=== PATIENT | male | born 1950 | race Caucasian/White ===

== ENCOUNTER 2021-03-31 08:59 | Outpatient (REF) | payer MEDICARE, OTHER, SELFPAY | END 2021-03-31 09:00 | disposition home or self-care (01) | LOC: HO.HMGCLDS 08:59 | PROVIDERS: PCP Internal Medicine; Visit Provider Internal Medicine | DX: Z20.822 Contact with and (suspected) exposure to COVID-19 (principal) | CPT/HCPCS: C9803; U0003; U0005 ==

== ENCOUNTER 2021-09-01 08:51 | Outpatient (REF) | payer MEDICARE, OTHER, SELFPAY ==
[2021-09-01 11:22] LABS: Hematocrit 38.9 % (42.0-52.0); Hemoglobin 12.5 g/dl (14.0-18.0); Mean Corpuscular HGB Conc 32.1 g/dl (31.0-36.0); Mean Corpuscular Hemoglobin 30.5 pg (27.0-33.0); Mean Corpuscular Volume 94.9 fL (80.0-98.0); Mean Platelet Volume 11.7 fL (9.4-12.4); Platelet Count 209 X10*3/uL (160-400); Red Cell Distribution Width 13.2 % (11.0-16.0); White Blood Count 7.4 X10*3/uL (4.8-10.8)
[2021-09-01 11:45] LABS: Appearance Urine CLEAR; Color Urine YELLOW; Glucose Urine UA NEG (NEG); Leukocyte Esterase Urine NEG (NEG); Nitrite Urine NEG (NEG); Specific Gravity - Urine >= 1.030 (1.005-1.025); Urine Blood NEG (NEG); Urine Ketones NEG (NEG); Urine Protein NEG (NEG-TRACE)
[2021-09-01 11:49] LABS: Alanine Aminotransferase 25 U/L (0-40); Albumin Level 3.9 g/dL (3.5-5.0); Alkaline Phosphatase 70 U/L (39-117); Anion Gap 8 (12-20); Aspartate Amino Transferase 21 U/L (5-37); Bilirubin Total 0.8 mg/dL (0.0-1.0); Blood Urea Nitrogen 24 mg/dL (9-16); Calcium 8.8 mg/dL (8.4-10.2); Carbon Dioxide 29 mmol/L (22-29); Chloride 108 mmol/L (96-108); Cholesterol 108 mg/dL; Estimated Glomerular Filt Rate > 60; Glucose Fasting 95 mg/dL (60-99); HDL Cholesterol 42 mg/dL; LDL Cholesterol Calculated 60 mg/dl; Potassium 4.1 mmol/L (3.3-5.1); Sodium 141 mmol/L (135-145); Total Protein 6.3 g/dL (6.5-8.0); Triglycerides 32 mg/dL
[2021-09-01 11:52] LABS: Prostate Specific Antigen Scr 3.15 ng/mL (<0.05-4.0)
[2021-09-01 12:16] LABS: Squamous Epithelial Cell Urine TRACE /LPF; WBC Urine 0-2 /HPF (0-4)
[2021-09-01 12:17] LABS: Bacteria Urine TRACE /LPF; Mucus Urine TRACE /LPF; RBC Urine 0-2 /HPF (0)
== END 2021-09-01 08:52 | disposition home or self-care (01) ==
LOC: HO.HMGCLDS 08:51
PROVIDERS: PCP Internal Medicine; Visit Provider Internal Medicine
DX: Z00.00 Encounter for general adult medical examination without abnormal findings (principal); Z12.5 Encounter for screening for malignant neoplasm of prostate; I48.91 Unspecified atrial fibrillation; I10 Essential (primary) hypertension
CPT/HCPCS: 36415; 80053; 80061; 81001; 84153; 85027

== ENCOUNTER 2021-12-07 14:39 | Outpatient (REF) | payer MEDICARE, OTHER, SELFPAY ==
[2021-12-07 16:33] LABS: Basophils Absolute Auto 0.1 X10*3/uL (0.0-0.2); Basophils Percent Auto 0.5 % (0-2); Eosinophils Absolute Auto 0.3 X10*3/uL (0.0-0.4); Eosinophils Percent Auto 2.5 % (0-4); Imm Gran Abs Auto 0.05 X10*3/uL (0.00-0.03); Imm Gran Pct Auto 0.4 % (0.0-0.4); Immature Retic Fraction 7.1 % (2.3-13.4); Lymphocytes Percent Auto 8.9 % (20-40); MANUAL DIFF FLAG SCAN; Mean Corpuscular HGB Conc 32.4 g/dl (31.0-36.0); Mean Corpuscular Hemoglobin 29.9 pg (27.0-33.0); Mean Corpuscular Volume 92.3 fL (80.0-98.0); Mean Platelet Volume 10.8 fL (9.4-12.4); Monocytes Absolute Auto 1.6 X10*3/uL (0.1-1.2); Monocytes Percent Auto 14.3 % (2-11); Neutrophils Absolute Auto 8.3 x10*3/uL (2.0-8.3); Neutrophils Percent Auto 73.4 % (45-73); Platelet Count 365 X10*3/uL (160-400); Red Blood Count 4.01 X10*6/uL (4.60-5.80); Red Cell Distribution Width 11.9 % (11.0-16.0); Retic HGB Equivalent 31.2 pg (30.0-35.0); Reticulocytes Absolute 0.038 X10*6/uL (0.026-0.095); SCAN SMEAR FLAG 1; White Blood Count 11.4 X10*3/uL (4.8-10.8)
[2021-12-07 16:42] LABS: Appearance Urine Cloudy; Color Urine Yellow; Glucose Urine UA Negative (Negative); Leukocyte Esterase Urine Trace (Negative); Nitrite Urine Negative (Negative); PH 5.5 (5.0-9.0); Specific Gravity - Urine 1.025 (1.005-1.025); Urine Blood Negative (Negative); Urine Ketones Negative (Negative); Urine Protein 30 (1+) mg/dL (Neg-Trace)
[2021-12-07 16:45] LABS: Alanine Aminotransferase 23 U/L (0-40); Albumin Level 3.6 g/dL (3.5-5.0); Alkaline Phosphatase 59 U/L (39-117); Anion Gap 15 (12-20); Aspartate Amino Transferase 24 U/L (5-37); Bilirubin Total 0.6 mg/dL (0.0-1.0); Blood Urea Nitrogen 17 mg/dL (9-16); Calcium 8.7 mg/dL (8.4-10.2); Carbon Dioxide 27 mmol/L (22-29); Chloride 103 mmol/L (96-108); Estimated Glomerular Filt Rate > 60; Glucose Random 105 mg/dL (60-115); Iron 20 mcg/dL (45-160); Percent Iron Saturation 8 % (15-50); Sodium 141 mmol/L (135-145); Total Iron Binding Capacity 236 mcg/dL (228-428); Total Protein 6.4 g/dL (6.5-8.0); Unsaturated Iron Binding 216 ug/dL
[2021-12-07 16:47] LABS: Bacteria Urine None Seen (None Seen); Squamous Epithelial Cell Urine 0-2 /HPF (0-2); WBC Urine 0-5 /HPF (0-5)
[2021-12-07 16:56] LABS: SLIDE REVIEW VERIFIED
[2021-12-07 17:06] LABS: TSH reflex Free T4 0.93 uIU/mL (0.32-4.0)
[2021-12-07 17:17] LABS: Folate 6.4 ng/mL (> or = 4.0); Vitamin B12 297 pg/mL (200-900)
[2021-12-10 10:03] LABS: PES - Abn Protein Band 1 0.2 g/dL (NONE DETECTED); Prot Elec - Albumin 3.1 g/dL (3.8-4.8); Prot Elec - Alpha1 0.6 g/dL (0.2-0.3); Prot Elec - Beta 1 0.4 g/dL (0.4-0.6); Prot Elec - Beta 2 0.3 g/dL (0.2-0.5); Prot Elec - Total Protein 6.5 g/dL (6.1-8.1)
== END 2021-12-07 14:40 | disposition home or self-care (01) ==
LOC: HO.HMGCLDS 14:39
PROVIDERS: PCP Internal Medicine; Visit Provider Internal Medicine
DX: I48.91 Unspecified atrial fibrillation (principal); R09.89 Other specified symptoms and signs involving the circulatory and respiratory systems; R63.4 Abnormal weight loss; I10 Essential (primary) hypertension
CPT/HCPCS: 36415; 80053; 81001; 82607; 82746; 83540; 84165; 84443; 85025; 85045

== ENCOUNTER 2021-12-29 12:25 | Outpatient (REF) | payer MEDICARE, OTHER, SELFPAY ==
--- NOTE | ~2021-12-29 | XR_ITS ---
EXAMINATION: XR FEMUR, LEFT CLINICAL INFORMATION: Abnormal findings on diagnostic imaging of limbs. COMPARISON: None TECHNIQUE: AP and lateral views of the left femur were obtained. FINDINGS: Irregular, expansile appearance of the proximal femur extending from the femoral neck into the proximal diaphysis. There is expansion of the cortex with inner cortical scalloping. No periosteal reaction or cortical erosion. Additionally within the distal femoral diametaphysis, there appears to be a well-defined lytic focus measuring up to 10.2 cm in craniocaudal dimension. No associated periosteal reaction or cortical erosion. No acute fracture or dislocation. No significant joint space narrowing or marginal osteophytes. Phleboliths within the pelvis. XR/XR femur LT 2V IMPRESSION: Expansile mixed lytic and sclerotic focus within the proximal femur as well as a smaller, lytic-appearing focus within the distal femur. Findings are nonspecific, however, there is no periosteal reaction or full-thickness cortical erosion. Differential diagnosis includes metastasis and myeloma given the patient's age. Giant cell tumor could also be included in the differential diagnosis. MR imaging without and with contrast could help further evaluate if clinically indicated.
[2021-12-29 14:14] LABS: Baso%MD 0.6 %; Eos%MD 2.6 %; Hematocrit 32.1 % (42.0-52.0); Hemoglobin 9.9 g/dl (14.0-18.0); IG%MD 0.5 %; Lymph%MD 11.2 %; Mean Corpuscular HGB Conc 30.8 g/dl (31.0-36.0); Mean Corpuscular Hemoglobin 28.2 pg (27.0-33.0); Mean Corpuscular Volume 91.5 fL (80.0-98.0); Mean Platelet Volume 10.8 fL (9.4-12.4); Mono%MD 12.4 %; Neut%MD 72.7 %; Platelet Count 400 X10*3/uL (160-400); Red Blood Count 3.51 X10*6/uL (4.60-5.80); Red Cell Distribution Width 13.2 % (11.0-16.0); White Blood Count 10.2 X10*3/uL (4.8-10.8)
[2021-12-29 14:54] LABS: Alanine Aminotransferase 87 U/L (0-40); Albumin Level 3.1 g/dL (3.5-5.0); Alkaline Phosphatase 76 U/L (39-117); Anion Gap 16 (12-20); Aspartate Amino Transferase 76 U/L (5-37); Bilirubin Total 0.6 mg/dL (0.0-1.0); Blood Urea Nitrogen 15 mg/dL (9-16); C Reactive Protein 12.25 mg/dL (< or = 0.50); Calcium 8.3 mg/dL (8.4-10.2); Carbon Dioxide 29 mmol/L (22-29); Chloride 102 mmol/L (96-108); Estimated Glomerular Filt Rate > 60; Glucose Random 94 mg/dL (60-115); Potassium 3.8 mmol/L (3.3-5.1); Sodium 143 mmol/L (135-145); Total Protein 6.1 g/dL (6.5-8.0)
[2021-12-29 15:01] LABS: Lymphocytes Absolute Manual 0.8 X10*3/uL (1.2-4.9); Lymphocytes Percent Manual 8 % (20-40); Monocytes Percent Manual 10 % (2-11); Neutrophils Percent Manual 82 % (45-73); Platelet Estimate NORMAL (NORMAL); Platelet Morphology Comment NORMAL; RBC Morphology NORMAL
[2021-12-29 15:06] LABS: Erythrocyte Sedimentation Rate 102 MM/HR (0-15)
[2021-12-29 15:20] LABS: Folate 6.6 ng/mL (> or = 4.0); Vitamin B12 422 pg/mL (200-900)
[2022-01-03 15:06] LABS: IgA 193 mg/dL (70-320); IgG 1175 mg/dL (600-1540); IgM 66 mg/dL (50-300)
== END 2021-12-29 12:26 | disposition home or self-care (01) ==
LOC: HO.HMGCX 12:25
PROVIDERS: PCP Internal Medicine; Visit Provider Internal Medicine
DX: R93.6 Abnormal findings on diagnostic imaging of limbs (principal); D80.1 Nonfamilial hypogammaglobulinemia; D64.9 Anemia, unspecified
CPT/HCPCS: 36415; 73552; 80053; 82607; 82746; 82784; 85007; 85027; 85652; 86140; 86334

== ENCOUNTER 2021-12-30 09:11 | Outpatient (REF) | payer MEDICARE, OTHER, SELFPAY ==
--- NOTE | ~2021-12-30 | US_ITS ---
EXAMINATION: US EXTRACRANIAL CAROTID DUPLEX, BILATERAL CLINICAL INFORMATION: Carotid bruit. Hypertension. Coronary artery disease. COMPARISON: 02/20/2018 TECHNIQUE: Real-time ultrasound and Doppler techniques (integrating B-mode 2-D vascular images, Doppler spectral analysis and color-flow Doppler imaging) were utilized to interrogate the extracranial carotid arteries, the vertebral arteries and proximal subclavian arteries bilaterally. The degree of stenosis is determined by criteria similar to NASCET. FINDINGS: Right Side: 1. There is moderate amount of soft atherosclerotic plaque seen in the bifurcation/proximal ICA region. 2. The common carotid artery PSV proximally is 80 cm/s and distally 72 cm/s. 3. The proximal internal carotid artery velocities are 187 cm/s systolic and 58 cm/s diastolic. 4. The proximal external carotid artery PSV is 83 cm/s. 5. The vertebral artery shows antegrade flow. 6. The subclavian artery waveforms are normal. Left Side: 1. There is moderate amount of mixed atherosclerotic plaque seen in the bifurcation/proximal ICA region. 2. The common carotid artery PSV proximally is 86 cm/s and distally 79 cm/s. 3. The proximal internal carotid artery velocities are 132 cm/s systolic and 46 cm/s diastolic. 4. The proximal external carotid artery PSV is 78 cm/s. 5. The vertebral artery shows antegrade flow. 6. The subclavian artery waveforms are normal. US/US carotid duplex BI IMPRESSION: 1. RIGHT: Moderate, hemodynamically significant stenosis of the proximal right internal carotid artery corresponding to a 50-79% stenosis by velocity criteria. 2. LEFT: Moderate, hemodynamically significant stenosis of the proximal left internal carotid artery corresponding to a 50-79% stenosis by velocity criteria. 3. There is no change in the category severity of disease when compared to the previous study dated 02/20/2018.
[2021-12-30 11:23] LABS: Appearance Urine Clear; Color Urine Yellow; Glucose Urine UA Negative (Negative); Leukocyte Esterase Urine Negative (Negative); Nitrite Urine Negative (Negative); Specific Gravity - Urine 1.015 (1.005-1.025); UMIC TRIGGER UACC YES; Urine Blood Trace (Negative); Urine Ketones Negative (Negative); Urine Protein 30 (1+) mg/dL (Neg-Trace)
[2021-12-30 11:28] LABS: Bacteria Urine None Seen (None Seen); Hyaline Casts Urine 0-2 /LPF (0-2); RBC Urine 0-2 /HPF (0-2); Squamous Epithelial Cell Urine 0-2 /HPF (0-2); WBC Urine 0-5 /HPF (0-5)
== END 2021-12-30 09:12 | disposition home or self-care (01) ==
LOC: HO.HMGCX 09:11
PROVIDERS: PCP Internal Medicine; Visit Provider Internal Medicine
DX: I10 Essential (primary) hypertension (principal); I48.91 Unspecified atrial fibrillation; R09.89 Other specified symptoms and signs involving the circulatory and respiratory systems
CPT/HCPCS: 81001; 93880

== ENCOUNTER 2022-02-14 08:23 | Outpatient (REF) | payer MEDICARE, OTHER, SELFPAY ==
[2022-02-14 11:22] LABS: MANUAL DIFF FLAG NO
[2022-02-14 11:28] LABS: Basophils Absolute Auto 0.1 X10*3/uL (0.0-0.2); Basophils Percent Auto 0.8 % (0-2); Eosinophils Absolute Auto 0.4 X10*3/uL (0.0-0.4); Eosinophils Percent Auto 5.3 % (0-4); Hematocrit 37.3 % (42.0-52.0); Hemoglobin 11.5 g/dl (14.0-18.0); Imm Gran Abs Auto 0.02 X10*3/uL (0.00-0.03); Imm Gran Pct Auto 0.3 % (0.0-0.4); Lymphocytes Absolute Auto 1.7 X10*3/uL (1.2-4.9); Lymphocytes Percent Auto 22.5 % (20-40); Mean Corpuscular HGB Conc 30.8 g/dl (31.0-36.0); Mean Corpuscular Hemoglobin 28.8 pg (27.0-33.0); Mean Corpuscular Volume 93.3 fL (80.0-98.0); Mean Platelet Volume 11.4 fL (9.4-12.4); Monocytes Absolute Auto 0.8 X10*3/uL (0.1-1.2); Monocytes Percent Auto 10.7 % (2-11); Neutrophils Absolute Auto 4.6 x10*3/uL (2.0-8.3); Neutrophils Percent Auto 60.4 % (45-73); Platelet Count 249 X10*3/uL (160-400); Red Cell Distribution Width 16.1 % (11.0-16.0); White Blood Count 7.6 X10*3/uL (4.8-10.8)
[2022-02-14 12:07] LABS: Alanine Aminotransferase 43 U/L (0-40); Albumin Level 3.8 g/dL (3.5-5.0); Alkaline Phosphatase 81 U/L (39-117); Anion Gap 14 (12-20); Aspartate Amino Transferase 30 U/L (5-37); Bilirubin Total 0.6 mg/dL (0.0-1.0); Blood Urea Nitrogen 22 mg/dL (9-16); Calcium 8.6 mg/dL (8.4-10.2); Carbon Dioxide 25 mmol/L (22-29); Chloride 106 mmol/L (96-108); Estimated Glomerular Filt Rate > 60; Glucose Fasting 88 mg/dL (60-99); Iron 86 mcg/dL (45-160); Percent Iron Saturation 32 % (15-50); Potassium 4.3 mmol/L (3.3-5.1); Sodium 141 mmol/L (135-145); Total Iron Binding Capacity 271 mcg/dL (228-428); Total Protein 6.4 g/dL (6.5-8.0); Unsaturated Iron Binding 185 ug/dL
== END 2022-02-14 08:24 | disposition home or self-care (01) ==
LOC: HO.HMGCLDS 08:23
PROVIDERS: PCP Internal Medicine; Visit Provider Internal Medicine
DX: E61.1 Iron deficiency (principal)
CPT/HCPCS: 36415; 80053; 83540; 85025

== ENCOUNTER 2022-05-05 12:20 | Outpatient (REF) | payer MEDICARE, OTHER, SELFPAY ==
[2022-05-05 13:11] LABS: Ammonia 21 umol/L (13-55)
[2022-05-05 13:21] LABS: Alanine Aminotransferase 25 U/L (0-40); Albumin Level 4.2 g/dL (3.5-5.0); Alkaline Phosphatase 80 U/L (39-117); Anion Gap 12 (12-20); Aspartate Amino Transferase 26 U/L (5-37); Bilirubin Direct 0.3 mg/dL (0.0-0.5); Blood Urea Nitrogen 18 mg/dL (9-16); Calcium 9.3 mg/dL (8.4-10.2); Carbon Dioxide 29 mmol/L (22-29); Chloride 105 mmol/L (96-108); Estimated Glomerular Filt Rate > 60; Glucose Random 108 mg/dL (60-115); Phosphorus 3.3 mg/dL (2.7-4.5); Potassium 4.6 mmol/L (3.3-5.1); Sodium 141 mmol/L (135-145); Total Protein 7.1 g/dL (6.5-8.0)
== END 2022-05-05 12:21 | disposition home or self-care (01) ==
LOC: HO.LAB 12:20
PROVIDERS: PCP Internal Medicine; Visit Provider Psychiatry & Neurology Neurology
DX: G25.3 Myoclonus (principal)
CPT/HCPCS: 36415; 80048; 80076; 82140; 83519; 83520; 83735; 84100; 84181; 86255; 86256; 86341; 86596

== ENCOUNTER 2022-06-17 09:00 | Outpatient (REF) | payer MEDICARE, OTHER, SELFPAY ==
[2022-06-17 11:25] LABS: MANUAL DIFF FLAG NO
[2022-06-17 11:56] LABS: Basophils Absolute Auto 0.1 X10*3/uL (0.0-0.2); Basophils Percent Auto 0.7 % (0-2); Eosinophils Absolute Auto 0.3 X10*3/uL (0.0-0.4); Eosinophils Percent Auto 3.7 % (0-4); Hematocrit 40.3 % (42.0-52.0); Hemoglobin 12.9 g/dl (14.0-18.0); Imm Gran Abs Auto 0.03 X10*3/uL (0.00-0.03); Imm Gran Pct Auto 0.4 % (0.0-0.4); Lymphocytes Absolute Auto 1.5 X10*3/uL (1.2-4.9); Lymphocytes Percent Auto 21.7 % (20-40); Mean Corpuscular Hemoglobin 30.1 pg (27.0-33.0); Mean Corpuscular Volume 93.9 fL (80.0-98.0); Mean Platelet Volume 11.7 fL (9.4-12.4); Monocytes Absolute Auto 0.9 X10*3/uL (0.1-1.2); Neutrophils Absolute Auto 4.1 x10*3/uL (2.0-8.3); Neutrophils Percent Auto 60.5 % (45-73); Platelet Count 203 X10*3/uL (160-400); Red Blood Count 4.29 X10*6/uL (4.60-5.80); Red Cell Distribution Width 13.9 % (11.0-16.0); White Blood Count 6.8 X10*3/uL (4.8-10.8)
[2022-06-17 12:36] LABS: Alanine Aminotransferase 23 U/L (0-40); Alkaline Phosphatase 74 U/L (39-117); Anion Gap 8 (12-20); Aspartate Amino Transferase 25 U/L (5-37); Bilirubin Total 1.3 mg/dL (0.0-1.0); Blood Urea Nitrogen 27 mg/dL (9-16); Calcium 8.6 mg/dL (8.4-10.2); Carbon Dioxide 29 mmol/L (22-29); Chloride 109 mmol/L (96-108); Cholesterol 112 mg/dL; Estimated Glomerular Filt Rate > 60; Glucose Fasting 89 mg/dL (60-99); HDL Cholesterol 45 mg/dL; Iron 144 mcg/dL (45-160); LDL Cholesterol Calculated 60 mg/dl; Percent Iron Saturation 53 % (15-50); Potassium 4.2 mmol/L (3.3-5.1); Sodium 142 mmol/L (135-145); Total Iron Binding Capacity 274 mcg/dL (228-428); Total Protein 6.3 g/dL (6.5-8.0); Triglycerides 35 mg/dL; Unsaturated Iron Binding 130 ug/dL
== END 2022-06-17 09:01 | disposition home or self-care (01) ==
LOC: HO.HMGCLDS 09:00
PROVIDERS: PCP Internal Medicine; Visit Provider Internal Medicine
DX: E61.1 Iron deficiency (principal); D64.9 Anemia, unspecified; I10 Essential (primary) hypertension; I25.10 Atherosclerotic heart disease of native coronary artery without angina pectoris
CPT/HCPCS: 36415; 80053; 80061; 83540; 85025

== ENCOUNTER 2022-12-22 14:50 | Outpatient (REF) | payer MEDICARE, OTHER, SELFPAY ==
[2022-12-22 16:39] LABS: Appearance Urine Clear; Color Urine Yellow; Glucose Urine UA Negative (Negative); Leukocyte Esterase Urine Small (1+) (Negative); Nitrite Urine Negative (Negative); PH 5.5 (5.0-9.0); Specific Gravity - Urine >= 1.030 (1.005-1.025); UMIC TRIGGER UACC YES; Urine Blood Negative (Negative); Urine Ketones Negative (Negative); Urine Protein 30 (1+) mg/dL (Neg-Trace)
[2022-12-22 16:58] LABS: Bacteria Urine 1+ (None Seen); Hyaline Casts Urine 0-2 /LPF (0-2); RBC Urine 0-2 /HPF (0-2); Squamous Epithelial Cell Urine 0-2 /HPF (0-2); UACC Culture Trigger YES; WBC Urine 21-50 /HPF (0-5)
== END 2022-12-22 14:51 | disposition home or self-care (01) ==
LOC: HO.HMGCLDS 14:50
PROVIDERS: PCP Internal Medicine; Visit Provider Internal Medicine
DX: R30.0 Dysuria (principal)
CPT/HCPCS: 81001; 87086; 87088; 87186

== ENCOUNTER 2023-12-25 09:56 | Outpatient (AMB) | payer MEDICARE, OTHER, SELFPAY ==
--- NOTE | 2023-12-25 09:57 | A.OFFVIS_ITS ---
Intake Vital Signs 12/25/23 10:10 Height 6 ft 3 in Weight 203 lb BMI 25.4 BP 114/76 Blood Pressure Location Lt brachial Position Sitting Pulse 61 Pulse Source Pulse Oximeter Pulse Oximetry (%) 99 Oxygen Delivery Method Room Air Intake Visit Reasons: AWV Allergies No Known Allergies Allergy (Verified 12/25/23 10:11) HPI AWV HPI Details Initiated the conversation about Advanced Directives. Advanced Directives help? patients prepare for current and future decisions about their medical treatment? and place of care. Discussed with patient that it is a process where a patients? current condition and prognosis are reviewed, their wishes for information? regarding their illness are elicited, and likely medical dilemmas are presented? and options discussed. The form can be amended as needed, reviewed yearly and? make changes as needed IPPE/AWV ? year old presents? for her ? Annual? Wellness Visit, initial visit.? Medical / Social History Reviewed? Past Medical History ?Yes? . ? [place]? of Care / Care Team list updated ?Yes . ? Surgical/Hospitalization? History ?Yes . ? Current Medications? (including OTC and supplements) ?Yes . ? Family History ?Yes? . ? Tobacco? Control form ?Yes . ? AUDIT-C (Alcohol use) form? ?Yes . ? Illicit drug use in Social? History ?Yes . ? Current diagnosis of? depression? ?No ? Appropriate PHQ2/PHQ9? completed ?Yes . ? Data entered by ?Medical? Financial Management and reviewed by provider ? Fall Risk ? Fall? History? Have you had any falls with? injury in the past year? ?No . ? Have you had two or more? falls in the past year? ?No . ? Fall Risk Assessment: ?No? falls in the past year . ? HRA filled out by? the patient, reviewed by Provider and scanned. ? IPPE/AWV ? Balance? [place]? ?Yes . ? Tandem? walk ?Yes . ? Walk and? Turn ?Yes . ? Rise from? sit to stand ?Yes . ?Vision? Corrective? lens ?Yes ? Vision? screen ? Up-to-date, has an appointment [] for vision? screening and glaucoma screening ?Hearing? Whisper? test ?pass .? Initiated the conversation about Advanced Directives. Advanced Directives help? patients prepare for current and future decisions about their medical treatment? and place of care. Discussed with patient that it is a process where a patients? current condition and prognosis are reviewed, their wishes for information? regarding their illness are elicited, and likely medical dilemmas are presented? and options discussed. The form can be amended as needed, reviewed yearly and? make changes as needed Written? Plan?Completed. See Patient? Documents. [facility] Medical History (Updated 12/25/23 @ 10:35 by Astrid Bauman MD) A-fib Annual physical exam BPH (benign prostatic hyperplasia) Vertigo Low testosterone History of elevated PSA Vitamin D deficiency Mixed hyperlipidemia Coronary artery disease Neuropathy Hypertension Surgical History (Updated 12/25/23 @ 10:46 by Astrid Bauman MD) H/O colonoscopy Family History Father Hypertension Mother Hypertension Social History Housing: House Alcohol intake: current Alcohol intake frequency: holidays/special occasions only Patient Tobacco Use Status: Never used Tobacco e-Cigarette/Vaping Use: Never Used Current occupational status: retired Cognitive needs: No Hearing needs: No Vision needs: Yes Questionnaire Medicare Wellness Checkup Can you handle your own money without help?: Yes Mini Mental State Exam (MMSE) Orientation What is the (year) (season) (date) (day) (month)?: year, season, date, day and month Where are we (state) (county) (town or city) (hospital) (floor)?: state, county, town or city, hospital/clinic and floor Registration Name of 3 unrelated objects clearly and slowly, then ask patient to repeat all 3 of them. (1st repeat determines score. Make sure they can repeat all three): object 1, object 2 and object 3 Attention & Calculation (CHOOSE ONE) Spell WORLD backwards (DLROW): 5 letters Recall Ask patient to repeat the 3 items from question #3.: object 1, object 2 and object 3 Language Show patient a wristwatch & ask what it is. Repeat for pencil.: watch and pencil Ask the patient to repeat the phrase 'No ifs, ands, or buts' after you.: correct Ask the patient to 'take a piece of paper with their right hand' 'fold paper in half' 'place paper on floor': take paper in right hand, fold paper in half and place paper on floor Print the sentence 'CLOSE YOUR EYES' on a piece. If patient actually closes eyes then score.: followed written direction Give patient a blank piece of paper & ask to write a sentence. Score if it contains a noun & verb.: sentence contains subject and verb Score Score: 29 Review of Systems Const All systems reviewed & are unremarkable except as noted in HPI and below Reports no additional complaints Eyes Reports no additional complaints ENT Reports no additional complaints Card Reports no additional complaints Resp Reports no additional complaints GI Reports no additional complaints Reports no additional complaints Physical Exam Vital Signs: Last Vital Signs Pulse 61 12/25/23 10:10 BP 114/76 12/25/23 10:10 Pulse Ox 99 12/25/23 10:10 Oxygen Delivery Method Room Air 12/25/23 10:10 BMI result Body Mass Index 25.4 Const General: no acute distress HEENT Head: Yes normal to inspection Ears: hearing grossly normal bilaterally Eyes General: appearance normal, both eyes and all related structures Neck Neck: Yes no lymphadenopathy and Yes supple Resp Effort & Inspection: normal respiratory effort Auscultation: clear to auscultation bilaterally Cardio Rhythm: regular rhythm Heart sounds: S1 normal heart sound present and S2 normal heart sound present GI Inspection: Yes normal to inspection Palpation (GI): Soft to palpation Percussion: Yes normal to percussion Auscultation: normal bowel sounds Extrem General: Yes no clubbing, cyanosis or edema Assessment & Plan Assessment & Plan (1) A-fib: Comment: f/u with Cardiology [place] pulsed field ablation 10/2023 Code(s): I48.91 - Unspecified atrial fibrillation (2) BPH (benign prostatic hyperplasia): Comment: f/u , f/u urology at [facility] , will have procedure to decrease blood flow Code(s): N40.0 - Benign prostatic hyperplasia without lower urinary tract symptoms (3) Annual physical exam: Code(s): Z00.00 - Encounter for general adult medical examination without abnormal findings (4) Hypertension: Code(s): I10 - Essential (primary) hypertension (5) Monoclonal gammopathy of unknown significance: Comment: will see hematology, referred by Dr. Messer Code(s): D47.2 - Monoclonal gammopathy Coding Diagnoses A-fib I48.91 BPH (benign prostatic hyperplasia) N40.0 Annual physical exam Z00.00 Hypertension I10 Monoclonal gammopathy of unknown significance D47.2
[2023-12-25 10:10] VITALS: BP 114/76; PULSE 61; O2SAT 99; BMI 25.4
--- NOTE | 2023-12-25 11:11 | A.OFFPC_ITS ---
Vital Signs 12/25/23 10:10 Height 6 ft 3 in Weight 203 lb BMI 25.4 BP 114/76 Blood Pressure Location Lt brachial Position Sitting Pulse 61 Pulse Source Pulse Oximeter Pulse Oximetry (%) 99 Oxygen Delivery Method Room Air Intake Visit Reasons: Follow up Allergies No Known Allergies Allergy (Verified 12/25/23 10:11) Tobacco use date assessed: 12/25/23 Fall risk assessment: No Falls in past year Dental Screening Dental Screen Date: 12/25/23 Did you have a dental visit in the last 12 months?: Yes Did you have a dental problem in the last 6 months where you did not have access to dental care?: No Was dental information given to patient?: Patient has dentist [facility] Medical History (Updated 12/25/23 @ 10:35 by Astrid Bauman MD) A-fib Annual physical exam BPH (benign prostatic hyperplasia) Vertigo Low testosterone History of elevated PSA Vitamin D deficiency Mixed hyperlipidemia Coronary artery disease Neuropathy Hypertension Surgical History (Updated 12/25/23 @ 10:46 by Astrid Bauman MD) H/O colonoscopy Family History Father Hypertension Mother Hypertension Social History Housing: House Alcohol intake: current Alcohol intake frequency: holidays/special occasions only Patient Tobacco Use Status: Never used Tobacco e-Cigarette/Vaping Use: Never Used service: No Current occupational status: retired Cognitive needs: No Hearing needs: No Vision needs: Yes Questionnaire PHQ-9 Over the last 2 weeks, how often have you been bothered by any of the following problems? 1. Little interest or pleasure in doing things: not at all 2. Feeling down, depressed, or hopeless: not at all 3. Trouble falling or staying asleep, or sleeping too much: not at all 4. Feeling tired or having little energy: not at all 5. Poor appetite or overeating: not at all 6. Feeling bad about yourself - or that you are a failure or have let yourself or your family down: several days 7. Trouble concentrating on things, such as reading the newspaper or watching television: not at all 8. Moving or speaking so slowly that other people could have noticed. Or the opposite - being so fidgety or restless that you have been moving around a lot more than usual: not at all 9. Thoughts that you would be better off or of hurting yourself in some way: not at all Total score: 1 Depression Screening Interpretation: Negative Depression Screening Done: Yes 61456 - PHQ-9 Billing: Yes Source: Developed by Drs. Ze Roy, Aby Augustin, Con Vaca and colleagues, with an educational albert from [employer]. Thrive Questionnaire Date Thrive assessed: 12/25/23 I am a: Patient What is your living situation today?: I have a steady place to live Within the past 12 months, did the food you bought not last and you didn't have the money to get more?: Never true Within the past 12 months, did you worry whether your food would run out before you got money to buy more?: Never true Do you have trouble paying for medicines?: No Do you have trouble getting transportation to medical appointments?: No Do you have trouble paying your heating and electricity bill?: No Do you have trouble taking care of your child, family member or friend?: No Do you have trouble with day-to-day activities such as bathing, preparing meals, shopping, managing finances, etc.?: No Are you currently unemployed and looking for a job?: No Are you interested in more education?: No Please select the resources that you would like help with: None THRIVE Score: 0 AUDIT C Alcohol Use Questionnaire (AUDIT-C) 1. How often do you have a drink containing alcohol?: Never 3. How often do you have six or more drinks on one occasion?: Never Total Score: 0 JONH-7 AMB Questionnaire JONH-7 Date JONH - 7 assessed: 12/25/23 Feeling nervous, anxious, or on edge: 0 = Not at all Not being able to stop or control worryin = Not at all Worrying too much about different things: 0 = Not at all Trouble relaxin = Not at all Being so restless that it is hard to sit still: 0 = Not at all Becoming easily annoyed or irritable: 0 = Not at all Feeling afraid as if something awful might happen: 0 = Not at all Total JONH-7 score (0-4 normal; 5-9 mild; 10-14 moderate; 15-21 severe): 0 Source: Developed by Drs. Ze Roy, Aby Augustin, Con Vaca and colleagues, with an educational albert from [employer]. JONH-7 Assessment Billing JONH-7 Assessment Tool: JONH-7 Assessment 82440 Physical exam (Primary Care) Vital Signs: Last Vital Signs Pulse 61 12/25/23 10:10 BP 114/76 12/25/23 10:10 Pulse Ox 99 12/25/23 10:10 Oxygen Delivery Method Room Air 12/25/23 10:10 BMI result Body Mass Index 25.4 Tobacco/Smoking Status: Tobacco use Status Tobacco use date assessed 12/25/23 12/25/23 11:12 Patient Tobacco Use Status Never used Tobacco 12/25/23 11:12 e-Cigarette/Vaping Use Never Used 12/25/23 11:12 PHQ-9: PHQ-9 Score PHQ-9: Total score 1 12/25/23 11:12 Depression Screening Interpretation: Negative Thrive Assessment: Date of Thrive Assessment Date Thrive assessed 12/25/23 12/25/23 11:12 Assessment and Plan Assessment & Plan (1) A-fib: Comment: f/u with [facility] pulsed field ablation 10/2023 Code(s): I48.91 - Unspecified atrial fibrillation (2) BPH (benign prostatic hyperplasia): Comment: f/u , f/u urology at [facility] , will have procedure to decrease blood flow Code(s): N40.0 - Benign prostatic hyperplasia without lower urinary tract symptoms (3) Annual physical exam: Code(s): Z00.00 - Encounter for general adult medical examination without abnormal findings (4) Hypertension: Code(s): I10 - Essential (primary) hypertension (5) Monoclonal gammopathy of unknown significance: Comment: will see hematology, referred by Dr. Messer Code(s): D47.2 - Monoclonal gammopathy Coding Diagnoses A-fib I48.91 BPH (benign prostatic hyperplasia) N40.0 Annual physical exam Z00.00 Hypertension I10 Monoclonal gammopathy of unknown significance D47.2 Additional Codes JONH-7 Assessment Billing - JONH-7 Assessment Tool: JONH-7 Assessment [id number] ([id number])
--- NOTE | 2023-12-25 15:08 | AM.OFFVISMDC ---
Intake Vital Signs 12/25/23 10:10 12/25/23 15:09 Height 6 ft 3 in Weight 203 lb BMI 25.4 25.4 BP 114/76 Blood Pressure Location Lt brachial Position Sitting Pulse 61 Pulse Source Pulse Oximeter Pulse Oximetry (%) 99 Oxygen Delivery Method Room Air Intake Visit Reasons: AWV Allergies No Known Allergies Allergy (Verified 12/25/23 10:11) HPI AWV HPI Details Initiated the conversation about Advanced Directives. Advanced Directives help? patients prepare for current and future decisions about their medical treatment? and place of care. Discussed with patient that it is a process where a patients? current condition and prognosis are reviewed, their wishes for information? regarding their illness are elicited, and likely medical dilemmas are presented? and options discussed. The form can be amended as needed, reviewed yearly and? make changes as needed IPPE/AWV ? year old presents? for her ? Annual? Wellness Visit, initial visit.? Medical / Social History Reviewed? Past Medical History ?Yes? . ? [place]? of Care / Care Team list updated ?Yes . ? Surgical/Hospitalization? History ?Yes . ? Current Medications? (including OTC and supplements) ?Yes . ? Family History ?Yes? . ? Tobacco? Control form ?Yes . ? AUDIT-C (Alcohol use) form? ?Yes . ? Illicit drug use in Social? History ?Yes . ? Current diagnosis of? depression? ?No ? Appropriate PHQ2/PHQ9? completed ?Yes . ? Data entered by ?Medical? [employer] and reviewed by provider ? Fall Risk ? Fall? History? Have you had any falls with? injury in the past year? ?No . ? Have you had two or more? falls in the past year? ?No . ? Fall Risk Assessment: ?No? falls in the past year . ? HRA filled out by? the patient, reviewed by Provider and scanned. ? IPPE/AWV ? Balance? [place]? ?Yes . ? Tandem? walk ?Yes . ? Walk and? Turn ?Yes . ? Rise from? sit to stand ?Yes . ?Vision? Corrective? lens ?Yes ? Vision? screen ? Up-to-date, has an appointment [] for vision? screening and glaucoma screening ?Hearing? Whisper? test ?pass .? Initiated the conversation about Advanced Directives. Advanced Directives help? patients prepare for current and future decisions about their medical treatment? and place of care. Discussed with patient that it is a process where a patients? current condition and prognosis are reviewed, their wishes for information? regarding their illness are elicited, and likely medical dilemmas are presented? and options discussed. The form can be amended as needed, reviewed yearly and? make changes as needed Written? Plan?Completed. See Patient? Documents. [facility] Medical History (Updated 12/25/23 @ 15:30 by Astrid Bauman MD) A-fib Annual physical exam BPH (benign prostatic hyperplasia) Vertigo Low testosterone History of elevated PSA Vitamin D deficiency Mixed hyperlipidemia Coronary artery disease Neuropathy Hypertension Surgical History (Updated 12/25/23 @ 10:46 by Astrid Bauman MD) H/O colonoscopy Family History Father Hypertension Mother Hypertension Social History Housing: House Alcohol intake: current Alcohol intake frequency: holidays/special occasions only Patient Tobacco Use Status: Never used Tobacco e-Cigarette/Vaping Use: Never Used Current occupational status: retired Cognitive needs: No Hearing needs: No Vision needs: Yes Questionnaire Medicare Wellness Checkup [age] What gender do you identify with?: male During the past 4 weeks, how much have you been bothered by emotional problems such as feeling anxious, depressed, irritable, sad or downhearted, and blue?: slightly During the past 4 weeks, has your physical & emotional health limited your social activities with family, friends, neighbors, or groups?: not at all During the past 4 weeks, how much bodily pain have you generally had?: very mild pain During the past 4 weeks, was someone available to help you if you needed & wanted help?: yes, as much as I wanted During the past 4 weeks, what was the hardest physical activity you could do for at least 2 minutes?: moderate Can you get to places out of walking distance without help? (For eg., can you travel alone on buses, taxis or drive your car?): Yes Can you go shopping for groceries or clothes without someone's help?: Yes Can you prepare your own meals?: Yes Can you do your housework without help?: Yes Because of any health problems, do you need the help of another person with your personal care needs such as eating, bathing, dressing or getting around the house?: No Can you handle your own money without help?: Yes During the past 4 weeks, how would you rate your health in general?: good During the past 4 weeks how have things been going for you?: pretty well Are you having difficulties driving your car?: no Do you always fasten your seat belt when you are in a car?: yes, usually During past 4 weeks, have you been bothered by the following: never: Falling or dizzy when standing up, Sexual problems?, Trouble eating well?, Teeth or denture problems?, Problems using the telephone? and Tiredness or fatigue? Have you fallen 2 or more times in the past year?: No Are you afraid of falling?: No Are you a smoker?: no During the past 4 weeks, how many drinks of wine, beer, or other alcoholic beverages did you have?: no alcohol at all Do you exercise for about 20 minutes 3 or more times a week?: yes, some of the time Have you been given information to help with the following?: no: Hazards in your house that might hurt you? and no: Keeping track of your medications? How often do you have trouble taking medicines the way you have been told to take them?: I always take medicine as prescribed How confident are you that you can control & manage most of your health problems?: very confident What is your race?: White Mini Mental State Exam (MMSE) Orientation What is the (year) (season) (date) (day) (month)?: year, season, date, day and month Where are we (state) (county) (town or city) (hospital) (floor)?: state, county, town or city, hospital/clinic and floor Registration Name of 3 unrelated objects clearly and slowly, then ask patient to repeat all 3 of them. (1st repeat determines score. Make sure they can repeat all three): object 1, object 2 and object 3 Attention & Calculation (CHOOSE ONE) Spell WORLD backwards (DLROW): 5 letters Recall Ask patient to repeat the 3 items from question #3.: object 1, object 2 and object 3 Language Show patient a wristwatch & ask what it is. Repeat for pencil.: watch and pencil Ask the patient to repeat the phrase 'No ifs, ands, or buts' after you.: correct Ask the patient to 'take a piece of paper with their right hand' 'fold paper in half' 'place paper on floor': take paper in right hand, fold paper in half and place paper on floor Print the sentence 'CLOSE YOUR EYES' on a piece. If patient actually closes eyes then score.: followed written direction Give patient a blank piece of paper & ask to write a sentence. Score if it contains a noun & verb.: sentence contains subject and verb Score Score: 29 Activity of Daily Living Bathing - sponge bath, tub bath or shower: receives no assistance (gets in/out by self, if usual bathing means Dressing - getting clothes from closets & drawers, including inner/outer garments & fasteners.: gets clothes & gets completely dressed without help Toileting - going to the 'toilet room' for urine/bowel elimination & cleaning self/arranging clothes: goes to toilet room, cleans self, arranges clothes without help Transfer: moves in & out of bed and chair without help (may use support object) Continence: controls urination/bowel movements completely by self Feeding: feeds self without help Total Score: 0 Information obtained from: patient Using telephone: independent Traveling: independent Shopping: independent Preparing meals: independent Housework: independent Taking medicine: independent Managing money: independent PHQ-9 Over the last 2 weeks, how often have you been bothered by any of the following problems? 1. Little interest or pleasure in doing things: not at all 2. Feeling down, depressed, or hopeless: not at all 3. Trouble falling or staying asleep, or sleeping too much: not at all 4. Feeling tired or having little energy: not at all 5. Poor appetite or overeating: not at all 6. Feeling bad about yourself - or that you are a failure or have let yourself or your family down: not at all 7. Trouble concentrating on things, such as reading the newspaper or watching television: not at all 8. Moving or speaking so slowly that other people could have noticed. Or the opposite - being so fidgety or restless that you have been moving around a lot more than usual: not at all 9. Thoughts that you would be better off or of hurting yourself in some way: not at all Total score: 0 Depression Screening Interpretation: Negative Depression Screening Done: Yes 96072 - PHQ-9 Billing: Yes Source: Developed by Drs. Ze Roy, Aby Augustin, Con Vaca and colleagues, with an educational albert from [email or web address]. Review of Systems Const All systems reviewed & are unremarkable except as noted in HPI and below Eyes Reports no additional complaints ENT Reports no additional complaints Card Reports no additional complaints Resp Reports no additional complaints GI Reports no additional complaints Reports no additional complaints Physical Exam Vital Signs: Last Vital Signs Pulse 61 12/25/23 10:10 BP 114/76 12/25/23 10:10 Pulse Ox 99 12/25/23 10:10 Oxygen Delivery Method Room Air 12/25/23 10:10 BMI result Body Mass Index 25.4 Const General: no acute distress HEENT Head: Yes normal to inspection Resp Effort & Inspection: normal respiratory effort Auscultation: clear to auscultation bilaterally Cardio Rhythm: regular rhythm Heart sounds: S1 normal heart sound present and S2 normal heart sound present GI Inspection: Yes normal to inspection Palpation (GI): Soft to palpation Percussion: Yes normal to percussion Auscultation: normal bowel sounds Extrem General: Yes no clubbing, cyanosis or edema Assessment & Plan Assessment & Plan (1) A-fib: Comment: f/u with Cardiology [place] pulsed field ablation 10/2023 Code(s): I48.91 - Unspecified atrial fibrillation Plan: Follow-up with the Cardiology (2) BPH (benign prostatic hyperplasia): Comment: f/u , f/u urology at [facility] , will have a new procedure Code(s): N40.0 - Benign prostatic hyperplasia without lower urinary tract symptoms Plan: Follow-up with urology (3) Annual physical exam: Code(s): Z00.00 - Encounter for general adult medical examination without abnormal findings Plan: Well-balanced diet regular physical activity discussed with the patient (4) Hypertension: Code(s): I10 - Essential (primary) hypertension Plan: Continue current medications (5) Monoclonal gammopathy of unknown significance: Comment: referred to [place] hematology by Dr. Messer Code(s): D47.2 - Monoclonal gammopathy Plan: Follow-up with hematology (6) Mixed hyperlipidemia: Code(s): E78.2 - Mixed hyperlipidemia Plan: Patient was advised to take high dose statin to prevent TN and CVA Quality Reporting (2019) Depression/Bipolar (159/160/161/177) PHQ-9: Total score: 0 Coding Level of Care Code Medicare Subsequent (G0439) Diagnoses A-fib I48.91 BPH (benign prostatic hyperplasia) N40.0 Annual physical exam Z00.00 Hypertension I10 Monoclonal gammopathy of unknown significance D47.2 Mixed hyperlipidemia E78.2 CPT Codes Advance Care Planning - Time spent: 1-15 minutes, not on file ([id number]) Advance Care Planning Advance Care Planning discussion: Exists, not on file Forms completed: Health Care Proxy Time spent: 1-15 minutes, not on file
[2023-12-25 15:09] VITALS: BMI 25.4
== END 2023-12-25 12:17 | disposition home or self-care (01) ==
PROVIDERS: PCP Internal Medicine; Visit Provider Internal Medicine
DX: Z00.00 Encounter for general adult medical examination without abnormal findings (principal); I48.91 Unspecified atrial fibrillation; N40.0 Benign prostatic hyperplasia without lower urinary tract symptoms; I10 Essential (primary) hypertension; D47.2 Monoclonal gammopathy; E78.2 Mixed hyperlipidemia

== ENCOUNTER → 2023-12-25 09:56 | Outpatient (BNVA) | payer MEDICARE, OTHER, SELFPAY | PROVIDERS: PCP Internal Medicine; Visit Provider Internal Medicine ==

== ENCOUNTER 2024-10-17 08:26 | Outpatient (AMB) | payer MEDICARE, OTHER, SELFPAY ==
[2024-10-17 08:33] VITALS: BP 118/80; PULSE 60; RESP 18; TEMP 36.5; O2SAT 99; BMI 24.7
--- NOTE | 2024-10-17 08:33 | A.OFFPC_ITS ---
Vital Signs 10/17/24 08:33 Height 6 ft 3 in Weight 198 lb BMI 24.7 BP 118/80 Blood Pressure Location Lt brachial Position Sitting Respiration 18 Pulse 60 Pulse Source Pulse Oximeter Temp 97.7 F Temp Source Oral Pulse Oximetry (%) 99 Oxygen Delivery Method Room Air Intake Visit Reasons: annual pe Intake Note: Pt is here today for PE. Allergies No Known Allergies Allergy (Verified 10/17/24 08:35) Medication List - Last Reconciled 10/17/24 by Astrid Bauman MD apixaban 5 mg PO BID aspirin 81 mg PO DAILY atorvastatin 80 mg PO DAILY diltiazem HCl CD (Cardizem CD) 180 mg PO DAILY flu vac 2020 [id number](PF) 60 mcg (15 mcg x 4)/0.5 mL mL IM lisinopril 10 mg PO DAILY metoprolol succinate ER 25 mg PO DAILY Tobacco use date assessed: 10/17/24 Fall risk assessment: No Falls in past year Last assessed Fall Risk: 10/17/24 Dental Screening Dental Screen Date: 10/17/24 Did you have a dental visit in the last 12 months?: Yes Did you have a dental problem in the last 6 months where you did not have access to dental care?: No Was dental information given to patient?: Patient has dentist HPI annual pe HPI Details Pt presents for PE PFS Medical History (Updated 10/17/24 @ 08:50 by Astrid Bauman MD) A-fib Annual physical exam BPH (benign prostatic hyperplasia) Vertigo Low testosterone History of elevated PSA Vitamin D deficiency Mixed hyperlipidemia Coronary artery disease Neuropathy Hypertension Surgical History History of prostate surgery Hx of prior ablation treatment H/O colonoscopy Family History Father Hypertension Mother Hypertension Social History Housing: House Alcohol intake: current Alcohol intake frequency: holidays/special occasions only Patient Tobacco Use Status: Never used Tobacco e-Cigarette/Vaping Use: Never Used service: No Current occupational status: retired Cognitive needs: No Hearing needs: No Vision needs: Yes Questionnaire PHQ-9 Over the last 2 weeks, how often have you been bothered by any of the following problems? 1. Little interest or pleasure in doing things: not at all 2. Feeling down, depressed, or hopeless: not at all 3. Trouble falling or staying asleep, or sleeping too much: not at all 4. Feeling tired or having little energy: not at all 5. Poor appetite or overeating: not at all 6. Feeling bad about yourself - or that you are a failure or have let yourself or your family down: not at all 7. Trouble concentrating on things, such as reading the newspaper or watching television: not at all 8. Moving or speaking so slowly that other people could have noticed. Or the opposite - being so fidgety or restless that you have been moving around a lot more than usual: not at all 9. Thoughts that you would be better off or of hurting yourself in some way: not at all Total score: 0 Depression Screening Interpretation: Negative Depression Screening Done: Yes 25818 - PHQ-9 Billing: Yes Source: Developed by Drs. Ze Roy, Aby Augustin, Con Vaca and colleagues, with an educational albert from [employer] Thrive Questionnaire Date Thrive assessed: 10/17/24 I am a: Patient What is your living situation today?: I have a steady place to live Within the past 12 months, did the food you bought not last and you didn't have the money to get more?: Never true Within the past 12 months, did you worry whether your food would run out before you got money to buy more?: Never true Do you have trouble paying for medicines?: No Do you have trouble getting transportation to medical appointments?: No Do you have trouble paying your heating and electricity bill?: No Do you have trouble taking care of your child, family member or friend?: No Do you have trouble with day-to-day activities such as bathing, preparing meals, shopping, managing finances, etc.?: No Are you currently unemployed and looking for a job?: No Are you interested in more education?: No Please select the resources that you would like help with: None Currently or been in a relationship where the following occur: No concerns reported THRIVE Score: 0 AUDIT C Alcohol Use Questionnaire (AUDIT-C) 1. How often do you have a drink containing alcohol?: Never 3. How often do you have six or more drinks on one occasion?: Never Total Score: 0 JONH-7 AMB Questionnaire JONH-7 Date JONH - 7 assessed: 10/17/24 Feeling nervous, anxious, or on edge: 0 = Not at all Not being able to stop or control worryin = Not at all Worrying too much about different things: 0 = Not at all Trouble relaxin = Not at all Being so restless that it is hard to sit still: 0 = Not at all Becoming easily annoyed or irritable: 0 = Not at all Feeling afraid as if something awful might happen: 0 = Not at all Total JONH-7 score (0-4 normal; 5-9 mild; 10-14 moderate; 15-21 severe): 0 Source: Developed by Drs. Ze Roy, Aby Augustin, Con Vaca and colleagues, with an educational albert from [employer] JONH-7 Assessment Billing JONH-7 Assessment Tool: JONH-7 Assessment 63453 Review of Systems Const All systems reviewed & are unremarkable except as noted in HPI and below Eyes Reports no additional complaints ENT Reports no additional complaints Card Reports no additional complaints Resp Reports no additional complaints GI Reports no additional complaints Reports no additional complaints Physical exam (Primary Care) Vital Signs: Last Vital Signs Temp 97.7 F 10/17/24 08:33 Pulse 60 10/17/24 08:33 Resp 18 10/17/24 08:33 BP 118/80 10/17/24 08:33 Pulse Ox 99 10/17/24 08:33 Oxygen Delivery Method Room Air 10/17/24 08:33 BMI result Body Mass Index 24.7 Tobacco/Smoking Status: Tobacco use Status Tobacco use date assessed 10/17/24 10/17/24 08:44 Patient Tobacco Use Status Never used Tobacco 10/17/24 08:44 e-Cigarette/Vaping Use Never Used 10/17/24 08:44 PHQ-9: PHQ-9 Score PHQ-9: Total score 0 10/17/24 08:53 Depression Screening Interpretation: Negative Thrive Assessment: Date of Thrive Assessment Date Thrive assessed 10/17/24 10/17/24 08:44 Currently or been in a relationship where the following occur: No concerns reported Const General: no acute distress HENMT Head: Yes normal to inspection Ears: hearing grossly normal bilaterally Face and sinus: Yes normal facial exam Mouth: Normal oral and palatal mucosa present Throat: Yes posterior oropharynx normal Eyes General: appearance normal, both eyes and all related structures Neck Neck: Yes no lymphadenopathy and Yes supple Resp Effort & Inspection: normal respiratory effort Auscultation: clear to auscultation bilaterally Cardio Rhythm: regular rhythm Heart sounds: S1 normal heart sound present and S2 normal heart sound present GI Inspection: Yes normal to inspection Palpation (GI): Soft to palpation Percussion: Yes normal to percussion Auscultation: normal bowel sounds Coding Level of Care Code Est Pt Prev Care >65y(02521) Diagnoses Annual physical exam Z00.00 Monoclonal gammopathy of unknown significance D47.2 A-fib I48.91 Hypertension I10 Mixed hyperlipidemia E78.2 Additional Codes JONH-7 Assessment Billing - JONH-7 Assessment Tool: JONH-7 Assessment [id number] ([id number]) PHQ-9 - 68150 - PHQ-9 Billing: Yes ([id number]) Assessment & Plan Assessment & Plan (1) Annual physical exam: Code(s): Z00.00 - Encounter for general adult medical examination without abnormal findings Category: Medical Plan: well balanced diet, regular exercise discussed with the patient (2) Monoclonal gammopathy of unknown significance: Comment: referred to [facility] hematology by Dr. Messer Code(s): D47.2 - Monoclonal gammopathy Category: Medical Plan: f/u hematology annually (3) A-fib: Comment: f/u with Cardiology [place] pulsed field ablation 10/2023, loop recorder Code(s): I48.91 - Unspecified atrial fibrillation Category: Medical Plan: f/u with cardiology, controlled on Cardizem and metoprolol (4) Hypertension: Code(s): I10 - Essential (primary) hypertension Category: Medical Plan: pt stopped lisinopril a week ago because of low blood pressure. He will follow- up with Cardiology (5) Mixed hyperlipidemia: Code(s): E78.2 - Mixed hyperlipidemia Category: Medical Plan: Continue statin Orders: Orders Comprehensive [place]. Panel Fast Today D47.2 - Monoclonal gammopathy, D64.9 - Anemia, unspecified, E61.1 - Iron deficiency, E78.2 - Mixed hyperlipidemia Complete Blood Count Auto Diff Today D47.2 - Monoclonal gammopathy, D64.9 - Anemia, unspecified, E61.1 - Iron deficiency, E78.2 - Mixed hyperlipidemia Immunofixation Pnl, Serum Today D47.2 - Monoclonal gammopathy, D64.9 - Anemia, unspecified, E61.1 - Iron deficiency, E78.2 - Mixed hyperlipidemia Immunofixation, Random Urine Today D47.2 - Monoclonal gammopathy, D64.9 - Anemi a, unspecified, E61.1 - Iron deficiency, E78.2 - Mixed hyperlipidemia TSH reflex Free T4 Today D47.2 - Monoclonal gammopathy, D64.9 - Anemia, unspecified, E61.1 - Iron deficiency, E78.2 - Mixed hyperlipidemia Lipid Panel Today D47.2 - Monoclonal gammopathy, D64.9 - Anemia, unspecified, E61.1 - Iron deficiency, E78.2 - Mixed hyperlipidemia UA CC w/rflx Micro + Cult Today D47.2 - Monoclonal gammopathy, D64.9 - Anemia, unspecified, E61.1 - Iron deficiency, E78.2 - Mixed hyperlipidemia IRON PROFILE Today D47.2 - Monoclonal gammopathy, D64.9 - Anemia, unspecified, E61.1 - Iron deficiency, E78.2 - Mixed hyperlipidemia Vitamin B12 and Folate Today D47.2 - Monoclonal gammopathy, D64.9 - Anemia, unspecified, E61.1 - Iron deficiency, E78.2 - Mixed hyperlipidemia
--- OUTSIDE RECORDS SUMMARY | 2024-10-17 08:39 | XMS_ITS | Encounter Summary ---
Author Organization [facility] Address [address] [place] [address] Care Team Providers Care Kettle Firer Name Role Phone Astrid Bauman MD Primary Care Provider [phone] Reason for Visit * Reason Onset Date Comments Medication 10/15/2024 Encounter Details Date Type Department Care Team (Late st Contact Info) Description 10/15/2024 Telephone [facility] [address] [place] [address] Lux Hoover MD [address] [place] [address] [address] [place] [address] Medication Social History Tobacco Use Types Packs/Day Years Used Date Smoking Tobacco: Never Smokeless Tobacco: Never Alcohol Use Standard Drinks/Week Comments Never 0 (1 standard drink = 0.6 oz pur e alcohol) Interpersonal Safety Answer Date Record ed Physical Abuse 02/13/2024 Verbal Abuse 02/13/2024 Sex and Gender Information Value Date Recorded Sex Assigned at Male 03/04/2024 12:29 PM EST Legal Sex Male 12:16 AM EST Gender Identity Male 03/04/2024 12:29 PM EST Sexual Orientation Straight 03/04/2024 12 :29 PM EST documented as of this encounter Progress Notes * Yoselin Warren RN - 10/15/2024 4:09 PM EDT I spoke to Jeb and informed him of Dr. Messer's message. He voiced understanding and agreeable with the plan. * Yoselin Warren RN - 10/15/2024 3:46 PM EDT I left a message on the patient's machine for call back. * Lux Hoover MD - 10/15/2024 3:03 PM EDT The patient likely needs a reduced dose of his antihypertensive medications secondary to his recentweight loss. Would recommend for the patient to hold his lisinopril for now. He should continue therest of his medications and he should continue to monitor his BP at home. He should contact our office if he continues to notice lower BP despite holding lisinopril. * Lisha Kamara NP - 10/15/2024 3:02 PM EDT Recommend stopping the lisinopril at this point. Continue diltiazem 180mg and metoprolol 25mg. Thanks * Yoselin Warren RN - 10/15/2024 2:01 PM EDT Jeb Ortega is a 74 y.o. male, followed by Dr. Messer/ [facility] with a history of coronaryartery disease status post PCI to circumflex and RCA in April 2019, atrial fibrillation status post ablation in the summer 2023, atrial flutter status post cardioversion in February 2024 and May 2024, arterial hypertension, hyperlipidemia, MGUS, neuropathy, carotid artery stenosis, and BPH. He has an ILR in place and follows with EP service Dr. Rick Benjamin in [place]. Patient is calling to report he lost 7-8 pounds in the last three weeks intentionally after cuttingdown on the carbs. He reports more fatigue, especially in his legs ans arms while riding a bike. Over the last two weeks, the patient reports lightheadedness with position change and while bending over. One day last week, he got up suddenly, felt presyncopal, and his symptoms resolved after ten seconds. He denies recurring presyncope. No syncope reported. This week, he's observed BP readings of 95/55, 90/60. This morning, two hours after taking Lisinopril and Diltiazem, his BP resulted 85/ upper 50's. He rechecked this afternoon- BP 115/60. His HR averages 60's-70's. Occasionally, his HR is in the 50's in the morning. The patient drinks 40-50 ounces of water daily. He presently takes Lisinopril 10 mg daily, Diltiazem ER 180 mg daily, and self- reduced his Metoprolol ER dose to 25 mg daily last week. The patient questioned if any of his medication doses should be decreased. * Magdaleno Barreto - 10/15/2024 1:43 PM EDT Jeb would like to discuss his Diltiazem, Lisinopril, and his metoprolol and how he feels he needs a reduction in the medication since he has lost 6 to 7 pound in 3 weeks. He has been having light headedness, being dizzy, and has low blood pressure, his blood pressure is about 90/50's. If we can give him a call back to discuss this he would appreciate it. documented in this encounter Plan of Treatment Upcoming Encounters Date Type Department Care Team (Late st Contact Info) Description 11/26/2024 8:20 AM EDT Office Visit [facility] [address] [place] [address] Lux Hoover MD [address] [place] [address] [address] [place] [address] documented as of this encounter Visit Diagnoses Not on filedocumented in this encounter Discontinued Medications Medication Sig Discontinue Reason Start Date End Da te metoprolol succinate (TOPROL-XL) 50 mg 24 hr tablet TAKE 1.5 TABLETS (75 MG TOTAL) BY MOUTH AT BEDTIME. DO NOT CRUSH OR CHEW. Dose adjustment 09/06/2024 10/15/2024 documented as of this encounter Historical Medications * This list may reflect changes made after this encounter. metoprolol succinate (TOPROL-XL) 25 mg 24 hr tablet Take 1 tablet (25 mg total) by mouth at bedtime. Do not crush or chew. added in this encounter Care Teams Kettle Firer Relationship Specialty Start Date End Date Astrid Bauman MD [address] [place] [address] PCP - General Internal Medicine 03/22/24 documented as of this encounter
--- OUTSIDE RECORDS SUMMARY | 2024-10-17 08:39 | XMS_ITS | Patient Health Record ---
Author [facility] Address [address] [place] [address] Care Team Providers Care Partition Setter Name Role Phone Astrid Bauman MD Primary Care Provider Yamila shelby Cris Arriaga Unavailable [phone] Allergies No Known Allergies Reason For Referral No Information Medications Medication SIG (Take, Route, Frequency, Duration) Notes Start Date End Date Status Metoprolol Succinate 50 MG 1 capsule Ora lly Once a day; Duration: 30 day(s) Active Atorvastatin Calcium 80 MG 1 tablet Oral ly Once a day; Duration: 30 day(s) Active Lisinopril 20 MG 1 tablet Orally Once a day; Duration: 30 day(s) Active Eliquis 5 MG as directed Orally Active Aspirin 81 81 MG 1 tablet Orally Once a day; Duration: 30 day(s) Active Ciclopirox Olamine 0.77 % 1 application Externally Twice a day; Duration: 14 days 08/28/2020 Active Finasteride 5 MG 1 tablet Orally Once a day Active Vitamin D 12.5 MCG/0.25ML 0.25 ml Orally Once a day; Duration: 30 day(s) Active Co Q-10 100 MG as directed Orally Active Immunizations Vaccine Route Administration Date Status Comme nts COVID-19 Pfizer BioNTech Vaccine Unknown 06/24/2020 Administered 1st vaccine Social History Tobacco Use: Social History Observation Description Date Details (start date - stop date) Never Smoker NA - NA Tobacco Use/Smoking Question Answer Notes Are you a: nonsmoker Additional Findings: Tobacco Non-User Aggressive non-smoker Alcohol Screen Question Answer Notes Did you have a drink containing alcohol in the p ast year? No Points 0 Interpretation Negative Tobacco use other than smoking: Question Answer Notes Are you an other tobacco user? No Problems Problem Type SNOMED Code ICD Code Onset Dates Problem Status W/U Status Risk Notes Problem Localized, primary osteoarthritis of the ankle and/or foot (149981409) Primary osteoarthrit is, right ankle and foot (M19.071) Active confirmed Problem Acquired hammer toe of right foot (9269387478191340) Hammer toe of right foot (M20.41) Active confirmed Plan Of Treatment Pending Test Test Name Order Date [id number] NAIL, 6 OR MORE 08/28/2020 Insurance Providers Payer Name Payer Address Payer Phone Subscriber Number Group Number Insured Name Patient Relationship to Insured Coverage Start Date Coverage End Date Medicare National Govt Svcs Inc [address] [place] [address] [id number] Jeb Ortega Self - patient is the insured [facility] [address] [place] [address] [id number] Jeb Ortega Self - patient is the insured Medical (General) History Medical History History ICD Code Angina Cholesterol Heart disease High blood pressure Surgical History Surgery Date(Month/Year) Stent x 2 04/24/2019
--- OUTSIDE RECORDS SUMMARY | 2024-10-17 08:39 | XMS_ITS | Clinical Summary ---
Author Organization [facility] Address [address] [place] [address] Care Team Providers Care Hvac Technician Name Role Phone Astrid Bamuan MD Primary Care Provider [phone] Allergies No known active allergies Medications Medication Sig Dispensed Refills Start Date End Date Status amiodarone (PACERONE) 200 MG tablet Take 1 tablet (200 mg total) by mouth daily. 0 10/24/2023 Active Eliquis 5 MG TABS tablet Take 1 tablet (5 mg total) by mouth 2 (two) times a day. 0 12/09/2023 Active atorvastatin (LIPITOR) tablet 80 mg 0 12/27/2023 Active ezetimibe (ZETIA) tablet 10 mg 0 12/22/2023 Active lisinopril (PRINIVIL,ZESTRIL) tablet 10 mg Take 1 tablet (10 mg total) by mouth daily. 0 11/11/2023 Active tamsulosin (FLOMAX) 0.4 MG CAPS TAKE 1 CAPSULE BY MOUTH EVERY EVENING AT BEDTIME 0 10/17/2023 Active Active Problems Problem Noted Date Diagnosed Date MGUS (monoclonal gammopathy of unknown significa nce) 01/03/2024 Raised level of immunoglobulins 01/03/2024 Family History Medical History Relation Name Comments Cancer Mother breast Relation Name Status Comments Mother Social History Tobacco Use Types Packs/Day Years Used Date Smoking Tobacco: Never Smokeless Tobacco: Never Alcohol Use Standard Drinks/Week Comments Not Currently 0 (1 standard drink = 0.6 oz pur e alcohol) Sex and Gender Information Value Date Recorded Sex Assigned at Male 12/25/2023 1:51 PM EDT Gender Identity Not on file Sexual Orientation Not on file Job Start Date Occupation Industry Not on file Not on file Not on file Last Filed Vital Signs Vital Sign Reading Time Taken Comments Blood Pressure 109/64 01/03/2024 1:15 PM EDT Pulse 72 01/03/2024 1:15 PM EDT Temperature 36.4 C (97.5 F) 01/03/2024 1:15 PM EDT Respiratory Rate - - Oxygen Saturation 100% 01/03/2024 1:15 PM EDT Inhaled Oxygen Concentration - - Weight 93.2 kg (205 lb 6.4 oz) 01/03/2024 1:15 P M EDT Height 185.4 cm (6' 1 ) 01/03/2024 1:15 PM EDT Body Mass Index 27.1 01/03/2024 1:15 PM EDT Plan of Treatment Health Maintenance Due Date Last Done Comments Hepatitis C Screening 1950 Pneumococcal Vaccine (1 of 2 - PCV) 07/07/1957 Depression Screening 1963 Preventative Health Evaluation 07/07/1969 DTap / Tdap / Td (1 - Tdap) 07/07/1970 Shingrix-Zoster Vaccine (1 of 2) 07/07/1970 Colon Cancer Screening (Colonoscopy) 07/07/1996 Fall Risk Assessment 07/07/2016 COVID-19 Vaccine (2 - Pfizer risk series) 07/15/2020 06/24/2020 Influenza Vaccine (#1) 2024 RSV Adult > 60+ Yrs or Pregn ant (1 - 1-dose 75+ series) 07/07/2026 Hepatitis B Vaccines Aged Out No long er eligible based on patient's age to complete this topic RSV Ped < 20 months Aged Out No longe r eligible based on patient's age to complete this topic Care Teams Hvac Technician Relationship Specialty Start Date End Date Astrid Bauman MD [address] [place] [address] PCP - General Oil Spraying Machine Operator 12/25/23
== END 2024-10-17 11:02 | disposition home or self-care (01) ==
LOC: HO.HMCC 08:27
PROVIDERS: PCP Internal Medicine; Visit Provider Internal Medicine
DX: Z00.00 Encounter for general adult medical examination without abnormal findings (principal); D47.2 Monoclonal gammopathy; I48.91 Unspecified atrial fibrillation; I10 Essential (primary) hypertension; E78.2 Mixed hyperlipidemia

== ENCOUNTER 2024-10-17 08:26 | Outpatient (REF) | payer MEDICARE, OTHER, SELFPAY ==
[2024-10-17 10:34] LABS: MANUAL DIFF FLAG NO
[2024-10-17 10:59] LABS: Hematocrit 35.7 % (42.0-52.0); Hemoglobin 11.9 g/dl (14.0-18.0); Imm Gran Abs Auto 0.04 X10*3/uL (0.00-0.03); Imm Gran Pct Auto 0.5 % (0.0-0.4); Lymphocytes Absolute Auto 1.5 X10*3/uL (1.2-4.9); Mean Corpuscular HGB Conc 33.3 g/dl (31.0-36.0); Mean Corpuscular Hemoglobin 31.0 pg (27.0-33.0); Mean Corpuscular Volume 93.0 fL (80.0-98.0); NRBC Abs Auto 0.000 X10*3/uL (0.0-0.012); NRBC Pct Auto 0.0 /100WBC (0.0-0.2); Platelet Count 194 X10*3/uL (160-400); Red Blood Count 3.84 X10*6/uL (4.60-5.80); White Blood Count 7.5 X10*3/uL (4.8-10.8)
[2024-10-17 11:20] LABS: Alanine Aminotransferase 18 U/L (0-40); Albumin Level 4.4 g/dL (3.5-5.0); Alkaline Phosphatase 88 U/L (39-117); Anion Gap 10 (12-20); Aspartate Amino Transferase 25 U/L (5-37); Blood Urea Nitrogen 40 mg/dL (9-16); Calcium 9.0 mg/dL (8.4-10.2); Carbon Dioxide 25 mmol/L (22-29); Chloride 107 mmol/L (96-108); Cholesterol 104 mg/dL (<200); Estimated Glomerular Filt Rate 48; HDL Cholesterol 45 mg/dL (>40); Iron 69 mcg/dL (45-160); Percent Iron Saturation 30 % (15-50); Potassium 5.0 mmol/L (3.3-5.1); Sodium 137 mmol/L (135-145); Total Iron Binding Capacity 233 mcg/dL (228-428); Total Protein 7.1 g/dL (6.5-8.0); Triglycerides 32 mg/dL (<150); Unsaturated Iron Binding 164 ug/dL
[2024-10-17 11:50] LABS: Folate 7.8 ng/mL (> or = 4.0); Vitamin B12 570 pg/mL (200-900)
[2024-10-17 14:27] LABS: Appearance Urine Clear; Glucose Urine UA Negative (Negative); PH 5.0 (5.0-9.0); Specific Gravity - Urine 1.020 (1.005-1.025)
== END 2024-10-17 08:27 | disposition home or self-care (01) ==
LOC: HO.HMGCLDS 08:26
PROVIDERS: PCP Internal Medicine; Visit Provider Internal Medicine
DX: Z00.00 Encounter for general adult medical examination without abnormal findings (principal); D47.2 Monoclonal gammopathy; I48.91 Unspecified atrial fibrillation; I10 Essential (primary) hypertension; E78.2 Mixed hyperlipidemia; E61.1 Iron deficiency; D64.9 Anemia, unspecified; Z13.30 Encounter for screening examination for mental health and behavioral disorders, unspecified; Z13.31 Encounter for screening for depression
CPT/HCPCS: 80053; 80061; 81001; 81003; 82607; 82746; 82784; 83540; 84443; 85025; 86334; 86335; 96127; 99397

== ENCOUNTER 2024-10-23 09:46 | Outpatient (REF) | payer MEDICARE, OTHER, SELFPAY ==
--- OUTSIDE RECORDS SUMMARY | 2024-10-23 10:21 | XMS_ITS | Patient Health Record ---
Author Organization [facility] Address [address] [facility] [place] [address] Care Team Providers Care Corn Husk Baler Name Role Phone Astrid Bauman MD Primary Care Provider Yamila shelby Cris Arriaga Unavailable [phone] Allergies No Known Allergies Reason For Referral [...] primary osteoarthritis of the ankle and/or foot (267654214) Primary osteoarthrit is, right ankle and foot (M19.071) Active confirmed Problem Acquired hammer toe of right foot ([id number]) Hammer toe of right foot (M20.41) Active confirmed Plan Of Treatment Pending Test Test Name Order Date [id number] NAIL, 6 OR MORE 08/28/2020 Insurance Providers Payer Name Payer Address Payer Phone Subscriber Number Group Number Insured Name Patient Relationship to Insured Coverage Start Date Coverage End Date Medicare National Govt Svcs Inc [address] [place] [address] [id number] Jeb Ortega Self - patient is the insured [facility] [address] [place] [address] [id number] Jeb Ortega Self - patient is the insured Medical (General) History Medical History History ICD Code Angina Cholesterol Heart disease High blood pressure Surgical History Surgery Date(Month/Year) Stent x 2 04/24/2019
--- OUTSIDE RECORDS SUMMARY | 2024-10-23 10:21 | XMS_ITS | Clinical Summary ---
Author Organization [facility] Address [address] [place] [address] Care Team Providers Care Shop Service Technician Name Role Phone Astrid Bauman MD Primary Care Provider [phone] Allergies No known active allergies Medications Medication [...] age to complete this topic Care Teams Shop Service Technician Relationship Specialty Start Date End Date Astrid Bauman MD [address] [address] PCP - General Microstrategy Architect Developer 12/25/23
--- OUTSIDE RECORDS SUMMARY | 2024-10-23 10:21 | XMS_ITS | Encounter Summary ---
Author Organization [facility] Address [address] [place] [address] Care Team Providers Care Patient Financial Specialist Name Role Phone Astrid Bauman MD Primary Care Provider Reason for Visit * Reason Onset Date Comments Medication Problem 10/21/2024 Encounter Details Date Type Department Care Team (Late st Contact Info) Description 10/21/2024 Telephone [facility] [address] [place] [address] [place] [address] Lux Hoover MD [address] [place] [address] [address] [place] [address] Medication Problem Social History Tobacco Use Types Packs/Day Years [...] as of this encounter Progress Notes * Lux Hoover MD - 10/22/2024 8:34 AM EDT Noted. Thank you. I agree with the patient seen [facility] [place] [place] on 10/24/2024. * Chanel Rudd MA - 10/22/2024 8:28 AM EDT FYI__I spoke with Jeb, and advised on all the below as Dr Messer has outlined, the pt is scheduled for , however Dr Messer's appts were all taken and [facility] [place] [place] had an availability for 10/24 at 3:40. I have scheduled the pt here, he also has an upcoming appt with AOP on 11/26/24 I did not cancel just incase he needs to return. (The pt accepted appt but would like to make sure AOP consulted as per pt he knows his hx very well) * Chanel Rudd MA - 10/21/2024 12:17 PM EDT Lvm for pt to cb * Lux Hoover MD - 10/21/2024 11:47 AM EDT 1. ILR device monitoring is not done by our office. ILR device monitoring is done with his liner reroll tender in [place]. The patient will need to contact his liner reroll tender to determine if his device has shown any recurrence of A-fib. 2. The lisinopril will not affect his heart rate. However, given his blood pressures, it does not seem that he needs the lisinopril right now. 3. Would recommend for the patient to monitor his heart rate at home and if he notices his heart rate to be elevated then I would recommend for him to increase his metoprolol to 75 mg orally daily permanently. 4. The patient will benefit from a follow-up appointment in our office. Please schedule the patientfor a follow-up appointment with me on 10/24/2024. Use any of my reserved slots in order to accommodate the patient's appointment. * Chanel Rudd MA - 10/21/2024 11:29 AM EDT I spoke to Jeb and he tells me he stopped taking the lisinopril approximately about a week ago, and although his bp is not low, it is not high either but normally his bp as it is today is 118/70 hr 80's however, in the past week his hr has been in the high 120-125's and he can definitely feel it, he has been sending manual downloads during these episodes, he states he has been completely asymptomatic, during the episodes he does have an anxious feeling when he feels his HR is elevating. Duringthe times the hr was elevated which just so happens to be this past Monday and Monday which he took 75 mg of metoprolol instead of is normal 50 mg . He is questioning whether or not he should restart lisinopril Device can you check the transmissions that were sent in by this pt--thank you * Chanel Rudd MA - 10/21/2024 10:44 AM EDT Lvm for pt to cb * Marion Dixon - 10/21/2024 10:13 AM EDT Patient wants to discuss adjusting medication. metoprolol [id number] mg lisinopriL 10 mg documented in this encounter Plan of Treatment Upcoming Encounters Date Type Department Care Team (Late st Contact Info) Description 10/24/2024 3:40 PM EDT Office Visit [facility] [address] [facility] [address] [place] [address] Jese Lam NP [address] [place] [address] [address] [place] [address] 11/26/2024 8:20 AM EDT Office Visit [facility] [address] [place] [address] Lux Hoover MD [address] [place] [address] [address] [place] [address] documented as of this encounter Visit Diagnoses Not on filedocumented in this encounter Care Teams Patient Financial Specialist Relationship Specialty Start Date End Date Astrid Bauman MD [address] [place] [phone] PCP - General Internal Medicine 03/22/24 documented as of this encounter
[2024-10-23 14:44] LABS: Anion Gap 10 (12-20); Blood Urea Nitrogen 23 mg/dL (9-16); Calcium 8.7 mg/dL (8.4-10.2); Carbon Dioxide 25 mmol/L (22-29); Chloride 106 mmol/L (96-108); Estimated Glomerular Filt Rate 58; Potassium 4.1 mmol/L (3.3-5.1); Sodium 137 mmol/L (135-145)
== END 2024-10-23 09:47 | disposition home or self-care (01) ==
LOC: HO.HMGCLDS 09:46
PROVIDERS: PCP Internal Medicine; Visit Provider Internal Medicine
DX: I95.9 Hypotension, unspecified (principal)
CPT/HCPCS: 36415; 80048